=== PATIENT | female | born 1990 | race Caucasian/White ===

== ENCOUNTER → 2016-07-31 | Outpatient (CLI) | payer OTHER ==
[~2016-07-31] MED LIST: ALBU8.5H3; IOHEXOL 300 MG/ML 75ml INJECTION ONE; NORMAL SALINE 100 ML ONE; SALINE FLUSH 10ml SYRINGE ONE
--- NOTE | 2016-07-31 15:02 | DI ---
Indication: ITS.REASON: R59.9 LYMPH NODES ENLARGED PROCEDURE: CT ABD/PELVIS W/CONTRAST ONLY: Encounter: Initial Comparison: None Technique: Axial CT images were performed through the abdomen and pelvis after the administration of intravenous contrast. Coronal and sagittal two-dimensional reformats. Automated Exposure Control and Iterative Reconstruction dose reducing techniques were utilized. Contrast: Omnipaque 300 67 mL Findings: The lung bases are clear. The liver appears normal. The gallbladder, spleen, pancreas and adrenal glands are within normal limits. The kidneys are normal. Minimal intra-abdominal fat limits evaluation for adenopathy. No evidence of a bowel obstruction. Bladder is normal. Fluid in the endometrial canal. Mildly prominent cyst or follicle in the right ovary measuring 2 cm in size. No significant free pelvic fluid. No evidence of a bowel obstruction. The appendix is normal in a retrocecal location. Bone windows are normal. Impression: No acute disease process seen in the abdomen or pelvis. No obvious adenopathy with a somewhat limited evaluation due to lack of intra-abdominal fat. .
== END ==
LOC: IMA.MDS 12:22
PROVIDERS: ATTEND Family Medicine
DX: R59.9 Enlarged lymph nodes, unspecified (principal)